=== PATIENT | male | born 2000 | race Caucasian/White ===

== ENCOUNTER 2019-03-28 09:24 | Emergency (ER) | payer OTHER ==
[~2019-03-28] VITALS: Ht 188 cm; Wt 77.1 kg
[2019-03-28 09:49] LABS: ABSOLUTE EOSINOPHILS 0.1 thou/uL (0.0-0.7); ABSOLUTE LYMPHOCYTES 3.2 thou/uL (0.8-5.3); ABSOLUTE MONOCYTES 0.6 thou/uL (0.0-1.2); ABSOLUTE NEUTROPHILS 2.8 thou/uL (1.6-8.1); BASOPHILS 0.7 %; EOSINOPHILS 1.2 %; HEMATOCRIT 43.2 % (42.0-52.0); HEMOGLOBIN 15.2 gm/dL (14.0-18.0); LYMPHOCYTES 47.4 %; MCH 31.7 pg (26.0-34.0); MCHC 35.2 g/dL (28.0-37.0); MCV 89.9 fL (80.0-100.0); MPV 8.2 fl. (7.2-11.1); NUCLEATED RBCS 0 /100WBC; PLATELET COUNT* 179 thou/uL (150-400); POLYS 41.7 %; RDW-CV 13.1 % (10.5-14.5); WBC 6.8 thou/uL (4.0-11.0)
[2019-03-28 09:59] LABS: CALCIUM 8.8 mg/dL (8.5-10.1); CREATININE 1.3 mg/dL (0.6-1.3); POTASSIUM 3.6 mmol/L (3.5-5.1)
[2019-03-28 09:59] LABS: URINE BILIRUBIN NEGATIVE (Negative); URINE BLOOD NEGATIVE (Negative); URINE CLARITY CLEAR; URINE COLOR YELLOW; URINE GLUCOSE-RANDOM NEGATIVE (Negative); URINE KETONES NEGATIVE (Negative); URINE LEUKOCYTES NEGATIVE (Negative); URINE NITRITE NEGATIVE (Negative); URINE PROTEIN NEGATIVE (Negative); URINE UROBILINOGEN 0.2 E.U./dl (0.2-1.0)
[2019-03-28 10:04] LABS: ALBUMIN 4.4 g/dL (3.4-5.0); TOTAL BILIRUBIN 0.5 mg/dL (<0.1-1.0); TOTAL PROTEIN 7.3 g/dL (6.4-8.2)
[2019-03-28 10:05] LABS: AMP/METHAMP Negative (Negative); BARBITURATES Negative (Negative); BENZODIAZEPINES Negative (Negative); COCAINE Negative (Negative); METHADONE Negative (Negative); OPIATES Negative (Negative); PCP Negative (Negative); THC POSITIVE (Negative)
[2019-03-28 11:33] VITALS: BP 133/61
--- NOTE | 2019-03-28 17:05 | EKG ---
[place] [address] ELECTROCARDIOGRAM REPORT Name: JOSE A MIN Room: [facility]#: [id number] Admission: 03/28/19 Attend Phys: Discharge: 03/28/19 Date of : 89 Report #: [id number] THIS REPORT FOR: //name// [facility] ED Test Date: 2019-03-28 Test Time: 09:30:02 Pat Name: JOSE A MIN Department: Room: Gender: M Histology Tech: : 2000 Requested By: Nancy Oconnor Order Number: [id number] MD: Temo Reeves Measurements Intervals [place] Rate: 128 P: 72 SD: 178 QRS: 78 QRSD: 104 T: -20 QT: 285 QTc: 416 Interpretive Statements Sinus tachycardia Probable left ventricular hypertrophy Borderline T abnormalities, inferior leads No previous ECG available for comparison Electronically Signed On 03-28-2019 17:05:33 CDT by Temo Reeves [email or web address] <ELECTRONICALLY SIGNED> By: Temo Reeves MD, [facility] 03/28/19 1705 0930 9 Temo Reeves MD, FACC /EPI
== END 2019-03-28 11:33 | disposition home or self-care (01) ==
LOC: M.ERS 09:24
PROVIDERS: Personal Emergency Response Attendant
DX: R00.0 Tachycardia, unspecified (principal); R53.1 Weakness

== ENCOUNTER 2019-09-11 07:32 | Emergency (ER) | payer OTHER ==
[~2019-09-11] VITALS: Ht 188 cm; Wt 90.7 kg
[2019-09-11 08:02] LABS: INFLUENZA A ANTIGEN Negative (Negative); INFLUENZA B ANTIGEN Negative (Negative)
[2019-09-11] MEDS ORDERED: ZPAK PO (08:32)
[2019-09-11] MEDS ORDERED: PROMETHAZINE-C473 ML PO (08:32)
[2019-09-11 08:47] VITALS: BP 155/57
== END 2019-09-11 08:49 | disposition home or self-care (01) ==
LOC: M.ERS 07:32
PROVIDERS: Personal Emergency Response Attendant
DX: J40 Bronchitis, not specified as acute or chronic (principal)